=== PATIENT | male | born 1945 | race Caucasian/White ===

== ENCOUNTER → 2017-02-07 | Outpatient (CLI) | payer MEDICARE, OTHER ==
[~2017-02-07] MED LIST: AMLO5TAB2 PO; ASPI-515 PO; CHOL200024 PO; FLUN25SP NS; HYDR12.58 PO; LEVO50TA5 PO; METO10TA2 PO; OMEP40CA6 PO; OMNIPAQUE 350 MG/ML, 100ML BOTTLE ONE; OXYC-302 PO; PRED5TAB PO; SIMV20TA3 PO
== END | disposition home or self-care (01) ==
LOC: CFH 09:17
PROVIDERS: ATTEND Specialist
DX: C43.9 Malignant melanoma of skin, unspecified (principal); C76.0 Malignant neoplasm of head, face and neck; R91.8 Other nonspecific abnormal finding of lung field; I25.10 Atherosclerotic heart disease of native coronary artery without angina pectoris; K76.89 Other specified diseases of liver; J84.10 Pulmonary fibrosis, unspecified
CPT/HCPCS: 71260; 74177; Q9967

== ENCOUNTER → 2017-09-03 | Outpatient (CLI) | payer MEDICARE, OTHER ==
[~2017-09-03] MED LIST changes: -OMNIPAQUE 350 MG/ML, 100ML BOTTLE ONE
== END | disposition home or self-care (01) ==
LOC: PETCFH 09:07
PROVIDERS: ATTEND Specialist
DX: C76.0 Malignant neoplasm of head, face and neck (principal); S22.32XD Fracture of one rib, left side, subsequent encounter for fracture with routine healing; Z85.820 Personal history of malignant melanoma of skin; X58.XXXD Exposure to other specified factors, subsequent encounter
CPT/HCPCS: 78306; A9503

== ENCOUNTER → 2017-10-29 | Outpatient (CLI) | payer MEDICARE, OTHER ==
[~2017-10-29] MED LIST changes: +OMNIPAQUE 350 MG/ML, 100ML BOTTLE ONE
== END | disposition home or self-care (01) ==
LOC: CFH 10:48
PROVIDERS: ATTEND Specialist
DX: R91.1 Solitary pulmonary nodule (principal); R59.9 Enlarged lymph nodes, unspecified; E23.6 Other disorders of pituitary gland; C43.30 Malignant melanoma of unspecified part of face; C43.4 Malignant melanoma of scalp and neck
CPT/HCPCS: 71260; 74160; Q9967

== ENCOUNTER → 2018-02-07 | Outpatient (CLI) | payer MEDICARE, OTHER ==
[~2018-02-07] MED LIST changes: -OMNIPAQUE 350 MG/ML, 100ML BOTTLE ONE
== END | disposition home or self-care (01) ==
LOC: PETCFH 09:31
PROVIDERS: ATTEND Specialist
DX: C76.0 Malignant neoplasm of head, face and neck (principal); R91.1 Solitary pulmonary nodule
CPT/HCPCS: 78815; A9552

== ENCOUNTER → 2018-04-24 | Outpatient (CLI) | payer MEDICARE, OTHER | END | disposition home or self-care (01) | LOC: CFH 12:12 | PROVIDERS: ATTEND Specialist | DX: I08.3 Combined rheumatic disorders of mitral, aortic and tricuspid valves (principal); I10 Essential (primary) hypertension; C43.9 Malignant melanoma of skin, unspecified; C76.0 Malignant neoplasm of head, face and neck; E23.6 Other disorders of pituitary gland | CPT/HCPCS: 36415; 82550; 93306 ==

== ENCOUNTER → 2018-07-25 | Outpatient (CLI) | payer MEDICARE, OTHER ==
[~2018-07-25] MED LIST changes: -AMLO5TAB2 PO; +AMLO5TAB7 PO
== END | disposition home or self-care (01) ==
LOC: EDSTATUS 09:00 → CFH 09:11
PROVIDERS: ATTEND Specialist
DX: I07.1 Rheumatic tricuspid insufficiency (principal); I35.8 Other nonrheumatic aortic valve disorders; I10 Essential (primary) hypertension; C76.0 Malignant neoplasm of head, face and neck
CPT/HCPCS: 93306

== ENCOUNTER → 2018-08-22 | Outpatient (CLI) | payer MEDICARE, OTHER | END | disposition home or self-care (01) | LOC: PETCFH 13:21 | PROVIDERS: ATTEND Specialist | DX: I25.10 Atherosclerotic heart disease of native coronary artery without angina pectoris (principal); C76.0 Malignant neoplasm of head, face and neck; C43.9 Malignant melanoma of skin, unspecified | CPT/HCPCS: 78815; A9552 ==

== ENCOUNTER → 2019-02-07 | Outpatient (CLI) | payer MEDICARE, OTHER ==
[~2019-02-07] MED LIST changes: +AMLO-150 PO; -AMLO5TAB7 PO; +AZIT500T5 PO; +CEFD300C37 PO; +DABR50CA PO; -HYDR12.58 PO; +HYDROCHLOROTH12.5 MG PO; +OMNIPAQUE 350 MG/ML, 100ML BOTTLE ONE; +PRED1TAB PO; +SENN-177 NG; +TRAM2TAB PO
== END | disposition home or self-care (01) ==
LOC: CFH 08:23
PROVIDERS: ATTEND Specialist
DX: C76.0 Malignant neoplasm of head, face and neck (principal); C43.9 Malignant melanoma of skin, unspecified; R91.1 Solitary pulmonary nodule
CPT/HCPCS: 71260; 74177; Q9967

== ENCOUNTER 2019-04-24 11:01 | Outpatient (CLI) | payer MEDICARE, OTHER ==
[~2019-04-24 11:01] MED LIST changes: -OMNIPAQUE 350 MG/ML, 100ML BOTTLE ONE
[2019-04-24] MEDS ORDERED: OMNIPAQUE 350 MG/ML, 100ML BOTTLE ONE (15:28)
== END 2019-04-24 23:59 | disposition home or self-care (01) ==
LOC: CFH 11:01
PROVIDERS: ATTEND Specialist
DX: C76.0 Malignant neoplasm of head, face and neck (principal); C43.9 Malignant melanoma of skin, unspecified; R91.1 Solitary pulmonary nodule; K76.89 Other specified diseases of liver
CPT/HCPCS: 71260; 74177; Q9967

== ENCOUNTER → 2019-09-29 | Outpatient (CLI) | payer MEDICARE, OTHER ==
[~2019-09-29] MED LIST changes: +AZIT500T10 PO; -AZIT500T5 PO; +OMEP40CA42 PO; -OMEP40CA6 PO; +OMNIPAQUE 350 MG/ML, 100ML BOTTLE ONE; -PRED1TAB PO; +PRED1TAB19 PO
== END | disposition home or self-care (01) ==
LOC: CFH 10:45
PROVIDERS: ATTEND Radiology Radiation Oncology
DX: C77.1 Secondary and unspecified malignant neoplasm of intrathoracic lymph nodes (principal); R91.1 Solitary pulmonary nodule
CPT/HCPCS: 71260; 74177; Q9967

== ENCOUNTER 2019-09-30 07:34 | Outpatient (CLI) | payer MEDICARE, OTHER ==
[~2019-09-30 07:34] MED LIST changes: -OMNIPAQUE 350 MG/ML, 100ML BOTTLE ONE
== END 2019-09-30 23:59 | disposition home or self-care (01) ==
LOC: ROC 07:34
PROVIDERS: ATTEND Radiology Radiation Oncology
DX: C77.1 Secondary and unspecified malignant neoplasm of intrathoracic lymph nodes (principal)
CPT/HCPCS: G0463

== ENCOUNTER → 2019-12-22 | Outpatient (CLI) | payer MEDICARE, OTHER ==
[~2019-12-22] MED LIST changes: +OMNIPAQUE 350 MG/ML, 100ML BOTTLE ONE; +SIMV20TA19 PO; -SIMV20TA3 PO
== END | disposition home or self-care (01) ==
LOC: CFH 11:58
PROVIDERS: ATTEND Specialist
DX: C43.9 Malignant melanoma of skin, unspecified (principal); C76.0 Malignant neoplasm of head, face and neck; J98.59 Other diseases of mediastinum, not elsewhere classified; J84.10 Pulmonary fibrosis, unspecified; R91.1 Solitary pulmonary nodule; K76.89 Other specified diseases of liver
CPT/HCPCS: 71260; 74160; Q9967

== ENCOUNTER 2020-02-25 09:02 | Outpatient (CLI) | payer MEDICARE, OTHER ==
[~2020-02-25 09:02] MED LIST changes: -OMNIPAQUE 350 MG/ML, 100ML BOTTLE ONE
== END 2020-02-25 23:59 | disposition home or self-care (01) ==
LOC: ROC 09:02
PROVIDERS: ATTEND Radiology Radiation Oncology
DX: C77.1 Secondary and unspecified malignant neoplasm of intrathoracic lymph nodes (principal)
CPT/HCPCS: G0463

== ENCOUNTER → 2020-03-05 | Outpatient (CLI) | payer MEDICARE, OTHER ==
[~2020-03-05] MED LIST changes: +OMNIPAQUE 350 MG/ML, 100ML BOTTLE ONE
== END | disposition home or self-care (01) ==
LOC: CFH 14:34
PROVIDERS: ATTEND Radiology Radiation Oncology
DX: C77.1 Secondary and unspecified malignant neoplasm of intrathoracic lymph nodes (principal); J84.10 Pulmonary fibrosis, unspecified; R91.1 Solitary pulmonary nodule
CPT/HCPCS: 71260; 74177; 82565; Q9967

== ENCOUNTER → 2020-03-11 | Outpatient (CLI) | payer MEDICARE, OTHER ==
[~2020-03-11] MED LIST changes: -OMNIPAQUE 350 MG/ML, 100ML BOTTLE ONE
== END | disposition home or self-care (01) ==
LOC: PETCFH 09:30
PROVIDERS: ATTEND Radiology Radiation Oncology
DX: C77.1 Secondary and unspecified malignant neoplasm of intrathoracic lymph nodes (principal); C79.89 Secondary malignant neoplasm of other specified sites; I51.7 Cardiomegaly; R22.2 Localized swelling, mass and lump, trunk
CPT/HCPCS: 78815; A9552

== ENCOUNTER 2020-08-22 12:09 | Inpatient (IN) | payer MEDICARE, OTHER ==
[~2020-08-22] VITALS: Ht 170.2 cm; Wt 71.1 kg
--- NOTE | 2020-08-22 12:30 | NUR ---
PT BROUGHT BACK FROM TRIAGE WITH CHIEF COMPLAINT OF FEVER & COUGH FOR 5 DAYS.
[2020-08-22] MEDS ORDERED: CEFTRIAXONE PMX 1GM/50ML 50 ML IV ONE (13:00)
[2020-08-22] MEDS ORDERED: SODIUM CHLORIDE 0.9% 1,000ML IVBOLUS ONE (13:00)
[2020-08-22] MEDS ORDERED: DOXYCYCLINE 100 MG in DEXTROSE 5% 250 ML IV SCH (13:00)
[2020-08-22 13:07] LABS: BASOPHILS % (AUTO) 1 % (0-1); EOSINOPHILS % (AUTO) 1 % (1-7); LYMPHOCYTES % (AUTO) 5 % (22-44); MEAN CORPUSCULAR HGB CONC 33.8 g/dL (33.2-36.2); MEAN PLATELET VOLUME 8.2 fL (7.4-10.4); MONOCYTES % (AUTO) 8 % (2-9); NEUTROPHILS % (AUTO) 85 % (42-75); PLATELET COUNT 558 x10^3/uL (130-400); RED BLOOD COUNT 4.56 x10^6/uL (4.38-5.82); RED CELL DISTRIBUTION WIDTH 12.5 % (9.4-14.8)
[2020-08-22 13:14] LABS: ALANINE AMINOTRANSFERASE 52 U/L (12-78); ALBUMIN 2.3 g/dL (3.4-5.0); ANION GAP 11 mmol/L (5-15); CALCIUM 8.7 mg/dL (8.5-10.1); CHLORIDE 101 mmol/L (98-107); CREATININE 1.13 mg/dL (0.7-1.3)
[2020-08-22 13:16] LABS: ALKALINE PHOSPHATASE 150 U/L (45-117); BILIRUBIN,TOTAL 0.8 mg/dL (0.2-1.0); TOTAL PROTEIN 7.7 g/dL (6.4-8.2)
[2020-08-22 13:30] LABS: MD SCAN
[2020-08-22] MEDS ORDERED: CEFTRIAXONE PMX 1GM/50ML 50 ML ONE (14:03)
[2020-08-22] MEDS ORDERED: ONDANSETRON ODT 4 MG PO PRN (14:30)
[2020-08-22] MEDS ORDERED: ACETAMINOPHEN 325 MG TABLET PO PRN (14:30)
[2020-08-22] MEDS ORDERED: ENOXAPARIN 40 MG/0.4 ML SQ SCH (14:30)
[2020-08-22] MEDS: CEFTRIAXONE PMX 1GM/50ML 50 ML IV SCH (14:30)
[2020-08-22] MEDS ORDERED: ONDANSETRON 2MG/ML, 2ML IVPush PRN (14:30)
[2020-08-22] MEDS ORDERED: OXYcodone/APAP 5/325MG TABLET PO PRN (14:30)
[2020-08-22] MEDS ORDERED: ENOXAPARIN 40 MG/0.4 ML ONE (14:53)
[2020-08-22 15:25] LABS: C-REACTIVE PROTEIN, QUANT > 19.00 mg/dL (0.02-0.49)
--- NOTE | 2020-08-22 16:00 | NUR ---
REPORT TO ISREAL RINCON
[2020-08-22] MEDS ORDERED: BENZONATATE 100 MG CAPSULE ONE (17:18)
[2020-08-22] MEDS: SODIUM CHLORIDE 0.9% 1,000 ML IV SCH (17:22)
[2020-08-22] MEDS: BENZONATATE 100 MG CAPSULE PO SCH ×2 (17:22→20:31)
[2020-08-22] MEDS: LACTOBACILLUS CHEW TABLET PO SCH ×2 (17:22→20:31)
[2020-08-22] MEDS: VANCOMYCIN 50 MG/ML ORAL SUSP PO SCH ×2 (17:34→23:50)
[2020-08-22 17:55] VITALS: BP 123/70
[2020-08-22 17:56] LABS: RAPID INFLUENZA A Negative (Negative); RAPID INFLUENZA B Negative (Negative)
[2020-08-22 20:06] VITALS: BP 129/76
[2020-08-22] MEDS: ALBUTEROL-IPRATROPIUM MDI INH INH SCH (20:41)
[2020-08-22] MEDS ORDERED: DOXYCYCLINE 100MG CAP PO SCH (21:00)
[2020-08-22] MEDS: DOXYCYCLINE 100MG CAP PO SCH (23:50)
[2020-08-23 00:27] VITALS: BP 125/63
[2020-08-23 05:04] LABS: BASOPHILS % (AUTO) 1 % (0-1); EOSINOPHILS % (AUTO) 7 % (1-7); LYMPHOCYTES % (AUTO) 13 % (22-44); MEAN CORPUSCULAR HEMOGLOBIN 29.6 pg (27.5-34.5); MEAN CORPUSCULAR HGB CONC 33.8 g/dL (33.2-36.2); MEAN PLATELET VOLUME 8.3 fL (7.4-10.4); MONOCYTES % (AUTO) 7 % (2-9); NEUTROPHILS % (AUTO) 73 % (42-75); PLATELET COUNT 510 x10^3/uL (130-400); RED BLOOD COUNT 4.25 x10^6/uL (4.38-5.82); RED CELL DISTRIBUTION WIDTH 12.7 % (9.4-14.8)
[2020-08-23 05:06] LABS: MD NO
[2020-08-23 05:19] LABS: ALBUMIN 1.9 g/dL (3.4-5.0); ANION GAP 9 mmol/L (5-15); CALCIUM 8.3 mg/dL (8.5-10.1); CHLORIDE 105 mmol/L (98-107)
[2020-08-23 05:19] LABS: CLOSTRIDIUM DIFFICILE ANTIGEN NEGATIVE; CLOSTRIDIUM DIFFICILE TOXIN NEGATIVE (Negative)
[2020-08-23 05:25] LABS: ALANINE AMINOTRANSFERASE 33 U/L (12-78); ALKALINE PHOSPHATASE 118 U/L (45-117); BILIRUBIN,TOTAL 0.8 mg/dL (0.2-1.0); CREATININE 0.93 mg/dL (0.7-1.3); TOTAL PROTEIN 6.4 g/dL (6.4-8.2)
[2020-08-23] MEDS: ALBUTEROL-IPRATROPIUM MDI INH INH SCH ×4 (05:46→20:22)
[2020-08-23] MEDS: VANCOMYCIN 50 MG/ML ORAL SUSP PO SCH ×3 (05:46→17:27)
[2020-08-23] MEDS ORDERED: LEVOTHYROXINE 75 MCG TABLET PO SCH (06:00)
[2020-08-23 06:58] VITALS: BP 108/63
[2020-08-23] MEDS ORDERED: DIPHENOXYLATE/ATROPINE TABLET PO PRN (07:30)
[2020-08-23] MEDS: OMEPRAZOLE 20 MG CAPSULE.DR PO SCH (08:01)
[2020-08-23] MEDS: DOXYCYCLINE 100MG CAP PO SCH ×2 (08:01→20:23)
[2020-08-23] MEDS: BENZONATATE 100 MG CAPSULE PO SCH ×3 (08:01→20:23)
[2020-08-23] MEDS: LACTOBACILLUS CHEW TABLET PO SCH ×3 (08:01→20:23)
[2020-08-23] MEDS: ASPIRIN 81 MG TABLET EC PO SCH (08:01)
[2020-08-23] MEDS: CHOLECALCIFEROL 1,000 UNIT TABLET PO SCH (08:02)
[2020-08-23] MEDS: SODIUM CHLORIDE 0.9% 1,000 ML IV SCH (10:04)
[2020-08-23 12:23] VITALS: BP 114/68
[2020-08-23] MEDS: CEFTRIAXONE PMX 1GM/50ML 50 ML IV SCH (15:19)
[2020-08-23] MEDS: ENOXAPARIN 60 MG/0.6 ML SQ SCH (15:20)
[2020-08-23 20:14] VITALS: BP 112/64
[2020-08-24] MEDS: VANCOMYCIN 50 MG/ML ORAL SUSP PO SCH ×2 (00:19→06:07)
[2020-08-24 01:55] VITALS: BP 115/62
[2020-08-24] MEDS: SODIUM CHLORIDE 0.9% 1,000 ML IV SCH (03:30)
[2020-08-24] MEDS: ENOXAPARIN 60 MG/0.6 ML SQ SCH (04:17)
[2020-08-24 05:23] LABS: BASOPHILS % (AUTO) 1 % (0-1); EOSINOPHILS % (AUTO) 7 % (1-7); LYMPHOCYTES % (AUTO) 8 % (22-44); MEAN CORPUSCULAR HEMOGLOBIN 29.5 pg (27.5-34.5); MEAN CORPUSCULAR HGB CONC 33.3 g/dL (33.2-36.2); MEAN PLATELET VOLUME 8.7 fL (7.4-10.4); MONOCYTES % (AUTO) 6 % (2-9); NEUTROPHILS % (AUTO) 79 % (42-75); PLATELET COUNT 460 x10^3/uL (130-400); RED BLOOD COUNT 3.82 x10^6/uL (4.38-5.82); RED CELL DISTRIBUTION WIDTH 12.6 % (9.4-14.8)
[2020-08-24 05:45] LABS: MD SCAN
[2020-08-24] MEDS ORDERED: LEVOTHYROXINE 50 MCG TABLET PO SCH (06:00)
[2020-08-24 06:03] LABS: C-REACTIVE PROTEIN, QUANT > 19.00 mg/dL (0.02-0.49)
[2020-08-24] MEDS: ALBUTEROL-IPRATROPIUM MDI INH INH SCH ×3 (06:08→15:36)
[2020-08-24] MEDS: OMEPRAZOLE 20 MG CAPSULE.DR PO SCH (06:45)
[2020-08-24 07:28] VITALS: BP 112/65
[2020-08-24] MEDS: LACTOBACILLUS CHEW TABLET PO SCH ×2 (07:50→15:36)
[2020-08-24] MEDS: ASPIRIN 81 MG TABLET EC PO SCH (07:50)
[2020-08-24] MEDS: BENZONATATE 100 MG CAPSULE PO SCH ×2 (07:50→15:36)
[2020-08-24] MEDS: CHOLECALCIFEROL 1,000 UNIT TABLET PO SCH (07:50)
[2020-08-24] MEDS: DOXYCYCLINE 100MG CAP PO SCH (07:51)
[2020-08-24] MEDS ORDERED: ENOXAPARIN 60 MG/0.6 ML SQ SCH (09:00)
[2020-08-24] MEDS ORDERED: DOXY100C2 PO (10:09)
[2020-08-24] MEDS ORDERED: Albuterol-Ipratropium Mdi INH (10:09)
[2020-08-24] MEDS ORDERED: PRED5TAB PO (10:09)
[2020-08-24] MEDS ORDERED: ACID1TAB7 PO (10:09)
[2020-08-24] MEDS ORDERED: BENZ-17 PO (10:09)
[2020-08-24 14:00] VITALS: BP 108/65
[2020-08-24] MEDS: CEFTRIAXONE PMX 1GM/50ML 50 ML IV SCH (14:40)
== END 2020-08-24 16:00 | disposition home health service (06) | DRG 871 ==
LOC: ED 13:55 → EDIP 14:43 → 3N 17:46
PROVIDERS: ADMIT Internal Medicine; ATTEND Internal Medicine
DX: A41.9 Sepsis, unspecified organism (principal); J15.9 Unspecified bacterial pneumonia; J96.01 Acute respiratory failure with hypoxia; E87.1 Hypo-osmolality and hyponatremia; Z99.11 Dependence on respirator [ventilator] status; C43.9 Malignant melanoma of skin, unspecified; E03.9 Hypothyroidism, unspecified; R19.7 Diarrhea, unspecified; I10 Essential (primary) hypertension; Z20.828 Contact with and (suspected) exposure to other viral communicable diseases; Z80.1 Family history of malignant neoplasm of trachea, bronchus and lung; Z85.820 Personal history of malignant melanoma of skin; Z87.19 Personal history of other diseases of the digestive system; Z87.891 Personal history of nicotine dependence; R74.01 Elevation of levels of liver transaminase levels
CPT/HCPCS: 36415; 71045; 80053; 82728; 83605; 83615; 84145; 85025; 85379; 86140; 87040; 87324; 87400; 89055; 99285; G0378; J0696; J1650; J3370; J7060; J7030; J7512; U0003